=== PATIENT | female | born 1975 | race Hispanic/Latino ===

== ENCOUNTER 2018-08-17 14:50 | Emergency (ER) | payer OTHER ==
[~2018-08-17] VITALS: Ht 165.1 cm; Wt 80.3 kg
--- NOTE | 2018-08-17 18:56 | Diagnostic Imaging Report ---
Exam: Lumbar spine AP lateral oblique and sacrum 2 views History: Back pain Comparison: None. Findings: No fracture or malalignment. Disc spaces preserved. No abnormal soft tissue calcification or soft tissue defect. Impression: No acute osseous abnormality Signed by: Dr. Jerry Ornelas M.D. on 08/17/2018 6:53 PM
[2018-08-17 19:57] VITALS: BP 108/65
[2018-08-17] MEDS ORDERED: KETOROLAC TROMETHAMINE 60 MG/2 ML VIAL IM ONE (20:00)
[2018-08-17] MEDS ORDERED: TRAMADOL HCL 50 MG TAB PO ONE (20:00)
[2018-08-17] MEDS ORDERED: ORPHENADRINE CITRATE 30 MG/ML VIAL IM ONE (20:00)
== END 2018-08-17 20:45 | disposition home or self-care (01) ==
LOC: ER 14:50
DX: S39.012A Strain of muscle, fascia and tendon of lower back, initial encounter (principal); X50.0XXA Overexertion from strenuous movement or load, initial encounter; Y92.009 Unspecified place in unspecified non-institutional (private) residence as the place of occurrence of the external cause
CPT/HCPCS: 72110; 72220; 81025; 99284; J1885; J2360